=== PATIENT | female | born 1985 | race Asian ===

== ENCOUNTER 2021-04-28 16:26 | Outpatient (CLI) | payer OTHER ==
--- NOTE | 2021-04-28 18:21 | Ultrasound Report ---
PROCEDURE: OB First Trimester INDICATIONS: +PREG TEST OUTSIDE/PRIOR DATING DATA: Last menstrual period (LMP): 02/03/2021. LMP-based estimated date of delivery (HARDEEP): 11/10/2021. First dating scan (date and location): 04/28/2021. Estimated date of delivery (HARDEEP) from first dating scan: 11/06/2021. TECHNIQUE: Real-time scanning was performed of the fetus and maternal pelvic organs, with image documentation. COMPARISON: None FINDINGS: Embryo: [employer]-rump length of 6.2 cm corresponds with a 12 week 0 day gestation. No subchorionic or i mplantation bleed. Early visualized anatomy is within normal limits. Heart rate: 167 beats per minute Measurement variability in dating: +/- 4 weeks by LMP, +/- 7 days by mean sac diameter (use before 6 weeks gestation if crown-rump length not able to be measured), +/- 5 days by crown-rump length (6-12 weeks gestation). Maternal organs: Ovaries both ovaries unremarkable, and there is a 1.6 cm left ovarian hemorrhagic c yst, probable corpus luteum cyst. IMPRESSION: Single live intrauterine corresponds with a 12 week 0 day gestation. Reviewed by: Connor Carpio MD on 04/28/2021 5:20 PM [place] Approved by: Connor Carpio MD on 04/28/2021 5:20 PM [place] Station ID: [id number]
== END 2021-04-28 16:27 | disposition home or self-care (01) ==
LOC: DI 16:26
PROVIDERS: ATTEND Nurse Practitioner Obstetrics & Gynecology
DX: Z34.91 Encounter for supervision of normal pregnancy, unspecified, first trimester (principal); Z3A.12 12 weeks gestation of pregnancy

== ENCOUNTER 2021-05-03 08:00 | Outpatient (CLI) | payer OTHER ==
[2021-05-03 22:56] LABS: CHLAMYDIA TRACHOMATIS DNA NEGATIVE (NEGATIVE); NEISSERIA GONORRHOEAE DNA NEGATIVE (NEGATIVE); TRICHOMONAS VAGINALIS DNA NEGATIVE (NEGATIVE)
== END 2021-05-03 23:59 | disposition home or self-care (01) ==
LOC: LAB 08:00
PROVIDERS: ATTEND Nurse Practitioner Obstetrics & Gynecology
DX: Z11.3 Encounter for screening for infections with a predominantly sexual mode of transmission (principal); Z12.4 Encounter for screening for malignant neoplasm of cervix
CPT/HCPCS: 87491; 87591; 87661

== ENCOUNTER 2021-06-14 12:40 | Outpatient (CLI) | payer OTHER ==
--- NOTE | 2021-06-14 15:12 | Ultrasound Report ---
PROCEDURE: OB Detailed Eval INDICATIONS: SUPERVISION OF OUTSIDE/PRIOR DATING DATA: Last menstrual period (LMP): 02/03/2021. LMP-based estimated date of delivery (HARDEEP): 11/10/2021. First dating scan (date and location): 04/28/2021. Estimated date of delivery (HARDEEP) from first dating scan: 11/06/2021. The below data below was generated using the ultrasound HARDEEP of 11/06/2021 TECHNIQUE: Real-time scanning was performed of the fetus, with image documentation and biometric measurements. Endovaginal scanning: Performed COMPARISON: None. FINDINGS: General: A single living intrauterine gestation is present. Presentation: Vertex Placenta: Placental position is posterior, without previa. Amniotic fluid index: 11.3 cm, 5-24 cm normal. Largest pocket 3.2 cm. heart rate: 147 beats per minute. Maternal cervical canal: Closed and 3.6 cm long; normal length is 2.5 cm or more. biometrics: Biparietal diameter: 18 weeks 4 days Head circumference: 18 weeks 3 days Abdominal circumference: 19 weeks 1 day Femur length: 19 weeks 1 day Estimated gestational age from initial scan: 19 weeks 2 days. Composite gestational age from present scan: 18 weeks 6 days Estimated weight and percentile: 273 g; 34th percentile Measurement variability in biometric dating: +/- 10 days from 12-20 weeks gestation, +/- 2 weeks from 20-30 weeks gestation, +/- 3 weeks at 30 weeks gestation or later. Anatomic survey: Neuro: Ventricles are normal at less than 10 mm. Cisterna magna is normal at 3-11 mm. Cerebellum i s normal in size and morphology. Nuchal skin fold: Normal at less than 6 mm between 14 and 20 weeks gestational age. Face: Nose and lips, facial profile are normal. Spine: No evidence for spina bifida. Heart: 4-chambered heart is present, with normal ventricular outflow tracts. Diaphragm: Diaphragm is intact. Stomach: Left-sided stomach is present. Kidneys: No hydronephrosis. Normal is less than 5 mm in 2nd trimester, less than 7 mm in 3rd trimester. Cord: 3 vessel cord has orthotopic insertion. Bladder: Normal in size. Extremities: All 4 extremities are visualized. IMPRESSION: 1. Single living intrauterine with appropriate interval growth. 2. Normal amniotic fluid index. 3. Normal anatomic survey. Reviewed by: Nory Gonzalez MD, PhD on 06/14/2021 3:11 PM PDT Approved by: Nory Gonzalez MD, PhD on 06/14/2021 3:11 PM PDT Station ID: [id number]
== END 2021-06-14 12:41 | disposition home or self-care (01) ==
LOC: DI 12:40
PROVIDERS: ATTEND Nurse Practitioner Obstetrics & Gynecology
DX: Z34.02 Encounter for supervision of normal first pregnancy, second trimester (principal); Z3A.18 18 weeks gestation of pregnancy; Z36.89 Encounter for other specified antenatal screening